=== PATIENT | male | born 1985 | race Caucasian/White ===

== ENCOUNTER → 2023-08-16 08:32 | Outpatient (CLI) | payer BC, SELFPAY ==
[2023-08-16 17:41] LABS: Coronavirus 19, PCR Not Detected (NotDetected); Influenza A, PCR Not Detected (NotDetected); Influenza B, PCR Not Detected (NotDetected)
== END ==
PROVIDERS: PCP Nurse Practitioner; Visit Provider Nurse Practitioner
DX: J06.9 Acute upper respiratory infection, unspecified (principal)
CPT/HCPCS: 87636